=== PATIENT | female | born 1970 | race Caucasian/White ===

== ENCOUNTER 2021-07-17 18:55 | Emergency (ER) | payer SELFPAY ==
[~2021-07-17] VITALS: Ht 167.6 cm; Wt 122.5 kg
[2021-07-17 19:10] VITALS: BP 153/97
[2021-07-17] MEDS ORDERED: SULF-59 PO (20:14)
[2021-07-17] MEDS ORDERED: FLUCONAZOLE 100 MG TAB PO ONE (20:15)
[2021-07-17] MEDS ORDERED: CRUSHER, PILL MC ONE (20:22)
[2021-07-17 20:29] VITALS: BP 153/97
--- NOTE | 2021-07-17 20:29 | NUR ---
PT ASSESSED AND DISCHARGED BY DAVID BUSH
--- NOTE | 2021-07-17 20:30 | NUR ---
Patient discharged with v/s stable. Written and verbal after care instructions given and explained. Patient alert, oriented and verbalized understanding of instructions. Ambulatory with steady gait. All questions addressed prior to discharge. ID band removed. Patient advised to follow up with PMD. Rx of BACTRIM DS TABLET given. Patient educated on indication of medication including possible reaction and side effects. Opportunity to ask questions provided and answered.
== END 2021-07-17 20:30 | disposition home or self-care (01) ==
LOC: MED 18:55
DX: B37.9 Candidiasis, unspecified (principal); Z88.5 Allergy status to narcotic agent; Z90.49 Acquired absence of other specified parts of digestive tract
CPT/HCPCS: 81002; 81025; 99283